=== PATIENT | male | born 1985 | race Caucasian/White ===

== ENCOUNTER 2023-07-26 00:53 | Inpatient (IN) | payer OTHER ==
[2023-07-26] MEDS ORDERED: ONDANSETRON 4 MG/2 ML VIAL IVP STA (01:14)
[2023-07-26] MEDS ORDERED: SODIUM CHLORIDE 0.9% 1,000 ML IV ONE ×2 (01:14→03:04)
[2023-07-26] MEDS ORDERED: THIAMINE 100 MG/ML 2 ML VIAL IM STA (01:14)
[2023-07-26] MEDS ORDERED: LORazepam 2 MG/ML INJ IV PRN ×5 (01:14→03:07)
--- NOTE | 2023-07-26 01:22 | ED ---
Alcohol HPI - General Source: EMS Mode of arrival: EMS Limitations: altered mental status <Domingo Hill - Last Filed: 07/26/23 03:58> <Rose Hardin - Last Filed: 07/26/23 16:27> - General Chief Complaint: Alcohol Stated Complaint: etoh Time Seen by Provider: 07/26/23 01:04 - History of Present Illness Initial Comments: 38-year-old male with history of alcohol dependence presenting with chief complaint of alcohol withdrawal. Patient last drank of complaint of vodka on Friday. Patient was checked into [facility] on Friday, states that he continuously had worsening symptoms of feeling shaky and visual and auditory hallucinations. States that he does have a history of delirium tremens. No chest pain or difficulty breathing. Admits to nausea with no vomiting. (Domingo Hill) - Related Data Allergies Allergy/AdvReac Type Severity Reaction Status Date / Time bee pollen Allergy Swelling Verified 07/26/23 11:54 Penicillins Allergy Rash/Hives Verified 07/26/23 11:54 Review of Systems ROS Other: All systems not noted in ROS Statement are negative. <Domingo Hill - Last Filed: 07/26/23 03:58> ROS Other: All systems not noted in ROS Statement are negative. <Rose Hardin - Last Filed: 07/26/23 16:27> ROS Statement: Those systems with pertinent positive or pertinent negative responses have been documented in the HPI. General Exam Limitations: altered mental status General appearance: alert, in no apparent distress Head exam: Present: atraumatic, normocephalic, normal inspection Eye exam: Present: normal appearance, EOMI Neck exam: Present: normal inspection, full ROM Respiratory exam: Present: normal lung sounds bilaterally. Absent: respiratory distress, wheezes, rales, rhonchi, stridor Cardiovascular Exam: Present: regular rate, normal rhythm, normal heart sounds. Absent: systolic murmur, diastolic murmur, rubs, gallop, clicks Neurological exam: Present: alert, altered Psychiatric exam: Present: normal affect, normal mood Skin exam: Present: warm, dry, intact, normal color. Absent: rash <Domingo Hill - Last Filed: 07/26/23 03:58> Course Vital Signs 07/26/23 07/26/2307/26/23 00:56 07:25 07:28 Temperature 99.0 F Pulse Rate 83 101 H 122 H Respiratory 18 24 28 H Rate Blood Pressure 133/88 117/70 110/59 O2 Sat by Pulse 95 88 L 94 L Oximetry 07/26/23 07/26/23 07/26/23 08:04 08:37 08:40 Temperature Pulse Rate 89 94 94 Respiratory 18 18 22 Rate Blood Pressure 121/81 121/83 139/92 O2 Sat by Pulse 96 98 97 Oximetry 07/26/23 07/26/23 07/26/23 09:15 09:30 09:45 Temperature Pulse Rate 77 80 86 Respiratory 18 18 18 Rate Blood Pressure 116/73 142/54 111/78 O2 Sat by Pulse 97 98 Oximetry 07/26/23 07/26/23 10:15 10:45 Temperature Pulse Rate 64 68 Respiratory 18 18 Rate Blood Pressure 144/54 135/66 O2 Sat by Pulse 97 97 Oximetry Procedures - Restraint - Face to Face Restraint Occurrence 1 Patient's Immediate Situation: Endangers self safety, Endangers others' safety Patient's Reaction to the Intervention: Angry, Hostile, Aggressive, Combative, Resistive to care Patient's Medical & Behavioral Condition: Anxious, Agitated Need to Continue or Terminate Restraint or Seclusion: Continue Face to Face Eval of Restraint Date: 07/26/23 Face to Face Eval of Restraint Time: 08:45 <Rose Hardin - Last Filed: 07/26/23 16:27> Medical Decision Making - Lab Data Result diagrams: 07/26/23 01:36 07/26/23 03:20 <Domingo Hill - Last Filed: 07/26/23 03:58> - Lab Data Result diagrams: 07/26/23 15:47 07/26/23 03:20 <Rose Hardin - Last Filed: 07/26/23 16:27> - Medical Decision Making Was pt. sent in by a medical professional or institution (, PA, EMERGENCY ROOM DOCTOR, urgent care, hospital, or fpc...) When possible be specific @ -No Did you speak to anyone other than the patient for history (EMS, parent, family, police, friend...)? What history was obtained from this source @ -No Did you review nursing and triage notes (agree or disagree)? Why? @ -I reviewed and agree with nursing and triage notes Were old charts reviewed (outside hosp., previous admission, EMS record, old EKG, old radiological studies, urgent care reports/EKG's, fpc records)? Report findings @ -No old charts were reviewed Differential Diagnosis (chest pain, altered mental status, abdominal pain women, abdominal pain men, vaginal bleeding, weakness, fever, dyspnea, syncope, headache, dizziness, GI bleed, back pain, seizure, CVA, palpatations, mental health, musculoskeletal)? @ -not applicable EKG interpreted by me (3pts min.). @ -Sinus rhythm with short [place] interval. Prolonged QT interval. Ventricular rate 80. [place] interval 107. QRS 100. QT 443. QTc 479. X-rays interpreted by me (1pt min.). @ -None done CT interpreted by me (1pt min.). @ -None done U/S interpreted by me (1pt. min.). @ -None done What testing was considered but not performed or refused? (CT, X-rays, U/S, labs)? Why? @ -None What meds were considered but not given or refused? Why? @ -None Did you discuss the management of the patient with other professionals (professionals i.e. , PA, EMERGENCY ROOM DOCTOR, lab, RT, psych nurse, social sciences lecturer, ore miner, teacher, environmental compliance officer, window caser)? Give summary @ -My attending spoke with [facility] group provider on-call who accepted admission Was smoking cessation discussed for >3mins.? @ -No Was critical care preformed (if so, how long)? @ -No Were there social determinants of health that impacted care today? How? (Homelessness, low income, unemployed, alcoholism, drug addiction, transportation, low edu. Level, literacy, decrease access to med. care, alf, rehab)? @ -No Was there de-escalation of care discussed even if they declined (Discuss DNR or withdrawal of care, Hospice)? DNR status @ -No What co-morbidities impacted this encounter? (DM, HTN, Smoking, COPD, CAD, Cancer, CVA, ARF, Chemo, Hep., AIDS, mental health diagnosis, sleep apnea, mor bid obesity)? @ -None Was patient admitted / discharged? Hospital course, mention meds given and route, prescriptions, significant lab abnormalities, going to OR and other pertinent info. @ -38-year-old male presenting with chief complaint of alcohol withdrawal from [facility]. Last drink was on Friday. Physical examination is conducted. Lab work shows hypokalemia with potassium 2.6. Sodium 124. Chloride 70. CO2 38. Magnesium 2.4. Transaminitis and hyperbilirubinemia secondary to alcoholism. Patient will be admitted for alcohol withdrawal and placed on CIWA protocol. He is receiving oral and IV potassium replacement and IV fluids. I discussed this case with my attending Dr. Pham. Undiagnosed new problem with uncertain prognosis? @ -No Drug Therapy requiring intensive monitoring for toxicity (Heparin, Nitro, Insulin, Cardizem)? @ -No Were any procedures done? @ -No Diagnosis/symptom? @ -Alcohol withdrawal, hypokalemia, hyponatremia Acute, or Chronic, or Acute on Chronic? @ -Acute Uncomplicated (without systemic symptoms) or Complicated (systemic symptoms)? @ -Complicated Side effects of treatment? @ -No Exacerbation, Progression, or Severe Exacerbation? @ -No Poses a threat to life or bodily function? How? (Chest pain, USA, MA, pneumonia, PE, COPD, DKA, ARF, appy, cholecystitis, CVA, Diverticulitis, Homicidal, Suicidal, threat to staff... and all critical care pts) @ -Yes (Domingo Hill) - Lab Data Lab Results 07/26/23 07/26/23 07/26/23 Range/Units 01:36 01:36 01:36 WBC 8.5 (3.8-10.6) k/uL RBC 4.77 (4.30-5.90) m/uL Hgb 15.6 (13.0-17.5) gm/dL Hct 44.3 (39.0-53.0) % MCV 92.9 (80.0-100.0) fL MCH 32.7 (25.0-35.0) pg MCHC 35.2 (31.0-37.0) g/dL RDW 12.9 (11.5-15.5) % Plt Count 180 (150-450) k/uL MPV 8.3 Neutrophils % 71 % Lymphocytes % 10 % Monocytes % 15 % Eosinophils % 1 % Basophils % 0 % Neutrophils # 6.1 (1.3-7.7) k/uL Lymphocytes # 0.9 L (1.0-4.8) k/uL Monocytes # 1.3 H (0-1.0) k/uL Eosinophils # 0.1 (0-0.7) k/uL Basophils # 0.0 (0-0.2) k/uL Sodium 124 L (137-145) mmol/L Potassium 2.6 L* (3.5-5.1) mmol/L Chloride 70 L* (98-107) mmol/L Carbon Dioxide 38 H (22-30) mmol/L Anion Gap 16 mmol/L BUN 32 H (9-20) mg/dL Creatinine 0.97 (0.66-1.25) mg/dL Est GFR (CKD-EPI)AfAm >90 (>60 ml/min/1.73 sqM) Est GFR (CKD-EPI)NonAf >90 (>60 ml/min/1.73 sqM) Glucose 127 H (74-99) mg/dL Calcium 9.8 (8.4-10.2) mg/dL Phosphorus 3.3 (2.5-4.5) mg/dL Magnesium 2.4 H (1.6-2.3) mg/dL Total Bilirubin 1.7 H (0.2-1.3) mg/dL AST 997 H (17-59) U/L ALT 276 H (4-49) U/L Alkaline Phosphatase 99 (38-126) U/L Total Protein 8.4 H (6.3-8.2) g/dL Albumin 4.6 (3.5-5.0) g/dL Urine Color Light Yellow Urine Appearance Clear (Clear) Urine pH 6.5 (5.0-8.0) Ur Specific [employer] 1.008 (1.001-1.035) Urine Protein 1+ H (Negative) Urine Glucose (UA) Negative (Negative) Urine Ketones Trace H (Negative) Urine Blood Large H (Negative) Urine Nitrite Negative (Negative) Urine Bilirubin Negative (Negative) Urine Urobilinogen 2.0 (<2.0) mg/dL Ur Leukocyte Esterase Negative (Negative) Urine RBC 3 (0-5) /hpf Urine WBC 2 (0-5) /hpf Urine Bacteria Rare H (None) /hpf Serum Alcohol <10 mg/dL Disposition <Domingo Hill - Last Filed: 07/26/23 03:58> <Rose Hardin - Last Filed: 07/26/23 16:27> Clinical Impression: Alcohol withdrawal delirium, Alcohol withdrawal syndrome Disposition: ADMITTED IP TO THIS HOSP Condition: Stable
[2023-07-26 01:57] LABS: Basophils % (A) 0 %; Eosinophils # (A) 0.1 k/uL (0-0.7); Eosinophils % (A) 1 %; HCT 44.3 % (39.0-53.0); HGB 15.6 gm/dL (13.0-17.5); Lymphocytes # (A) 0.9 k/uL (1.0-4.8); Lymphocytes % (A) 10 %; MCH 32.7 pg (25.0-35.0); MCHC 35.2 g/dL (31.0-37.0); MCV 92.9 fL (80.0-100.0); Mean Platelet Volume 8.3; Monocytes # (A) 1.3 k/uL (0-1.0); Monocytes % (A) 15 %; Neutrophils # (A) 6.1 k/uL (1.3-7.7); Neutrophils % (A) 71 %; Platelet Count 180 k/uL (150-450); RBC 4.77 m/uL (4.30-5.90); RDW 12.9 % (11.5-15.5); WBC 8.5 k/uL (3.8-10.6)
[2023-07-26 02:04] LABS: Appearance,Urine Clear (Clear); Bacteria,Urine Rare /hpf; Bilirubin,Urine Negative (Negative); Blood,Urine Large (Negative); Color,Urine Light Yellow; Glucose,Urine (UA) Negative (Negative); Ketones,Urine Trace (Negative); Leukocyte Esterase,Urine Negative (Negative); Nitrite,Urine Negative (Negative); PH, Urine 6.5 (5.0-8.0); Protein,Urine 1+ (Negative); RBC,Urine 3 /hpf (0-5); Specific Gravity,Urine 1.008 (1.001-1.035); WBC,Urine 2 /hpf (0-5)
[2023-07-26 02:46] LABS: ALT 276 U/L (4-49); African American GFR (CKD) >90 (>60 ml/min/1.73 sqM); Albumin 4.6 g/dL (3.5-5.0); Alcohol <10 mg/dL; Alkaline Phosphatase 99 U/L (38-126); Blood Urea Nitrogen 32 mg/dL (9-20); Calcium 9.8 mg/dL (8.4-10.2); Glucose 127 mg/dL (74-99); Magnesium 2.4 mg/dL (1.6-2.3); Non-African American GFR(CKD) >90 (>60 ml/min/1.73 sqM); Phosphorus 3.3 mg/dL (2.5-4.5); Sodium 124 mmol/L (137-145); Total Bilirubin 1.7 mg/dL (0.2-1.3); Total Protein 8.4 g/dL (6.3-8.2)
[2023-07-26] MEDS ORDERED: LORazepam 2 MG/ML INJ IM STA ×3 (02:48→04:40)
[2023-07-26] MEDS ORDERED: LORazepam 2 MG/ML INJ IM PRN ×3 (02:50)
[2023-07-26 02:51] LABS: Anion Gap 16 mmol/L
[2023-07-26 02:54] LABS: AST 997 U/L (17-59); Carbon Dioxide 38 mmol/L (22-30); Chloride 70 mmol/L (98-107); Potassium 2.6 mmol/L (3.5-5.1)
[2023-07-26] MEDS ORDERED: Potassium Replacement Protocol 1 EACH MISC MISCELLANE PRN (03:03)
[2023-07-26] MEDS ORDERED: NALOXONE 0.4 MG/ML 1 ML VIAL IV PRN (03:05)
[2023-07-26] MEDS ORDERED: ONDANSETRON 4 MG/2 ML VIAL IVP PRN (03:08)
[2023-07-26] MEDS: SODIUM CHLORIDE 0.9% 1,000 ML IV SCH ×2 (03:36→11:58)
[2023-07-26] MEDS: POTASSIUM CHLORIDE 10 MEQ in WATER FOR INJECTION 1 100ML.BAG IVPB SCH ×12 (03:37→22:48)
[2023-07-26 03:42] LABS: African American GFR (CKD) >90 (>60 ml/min/1.73 sqM); Anion Gap 13 mmol/L; Blood Urea Nitrogen 32 mg/dL (9-20); Calcium 9.5 mg/dL (8.4-10.2); Glucose 154 mg/dL (74-99); Non-African American GFR(CKD) >90 (>60 ml/min/1.73 sqM); Sodium 122 mmol/L (137-145)
[2023-07-26 03:48] LABS: Carbon Dioxide 40 mmol/L (22-30)
[2023-07-26 03:55] LABS: Chloride 69 mmol/L (98-107)
[2023-07-26] MEDS ORDERED: HALOPERIDOL LACTATE 5 MG/ML 1 ML VIAL IM STA (03:55)
[2023-07-26] MEDS ORDERED: diphenhydrAMINE 50 MG/ML 1 ML VIAL IM STA (03:55)
[2023-07-26] MEDS: POTASSIUM CHLORIDE ER 20 MEQ TAB.ER PO SCH ×3 (04:17→07:32)
[2023-07-26] MEDS ORDERED: ZIPRASIDONE 20 MG VIAL IM STA (04:38)
--- NOTE | 2023-07-26 05:13 | ED ---
Medical Decision Making - Lab Data Result diagrams: 07/26/23 01:36 07/26/23 03:20 Lab Results 07/26/23 07/26/23 07/26/23 Range/Units 01:36 01:36 01:36 WBC 8.5 (3.8-10.6) k/uL RBC 4.77 (4.30-5.90) m/uL Hgb 15.6 (13.0-17.5) gm/dL Hct 44.3 (39.0-53.0) % MCV 92.9 (80.0-100.0) fL MCH 32.7 (25.0-35.0) pg MCHC 35.2 (31.0-37.0) g/dL RDW 12.9 (11.5-15.5) % Plt Count 180 (150-450) k/uL MPV 8.3 Neutrophils % 71 % Lymphocytes % 10 % Monocytes % 15 % Eosinophils % 1 % Basophils % 0 % Neutrophils # 6.1 (1.3-7.7) k/uL Lymphocytes # 0.9 L (1.0-4.8) k/uL Monocytes # 1.3 H (0-1.0) k/uL Eosinophils # 0.1 (0-0.7) k/uL Basophils # 0.0 (0-0.2) k/uL Sodium 124 L (137-145) mmol/L Potassium 2.6 L* (3.5-5.1) mmol/L Chloride 70 L* (98-107) mmol/L Carbon Dioxide 38 H (22-30) mmol/L Anion Gap 16 mmol/L BUN 32 H (9-20) mg/dL Creatinine 0.97 (0.66-1.25) mg/dL Est GFR (CKD-EPI)AfAm >90 (>60 ml/min/1.73 sqM) Est GFR (CKD-EPI)NonAf >90 (>60 ml/min/1.73 sqM) Glucose 127 H (74-99) mg/dL Calcium 9.8 (8.4-10.2) mg/dL Phosphorus 3.3 (2.5-4.5) mg/dL Magnesium 2.4 H (1.6-2.3) mg/dL Total Bilirubin 1.7 H (0.2-1.3) mg/dL AST 997 H (17-59) U/L ALT 276 H (4-49) U/L Alkaline Phosphatase 99 (38-126) U/L Total Protein 8.4 H (6.3-8.2) g/dL Albumin 4.6 (3.5-5.0) g/dL Urine Color Light Yellow Urine Appearance Clear (Clear) Urine pH 6.5 (5.0-8.0) Ur Specific [place] 1.008 (1.001-1.035) Urine Protein 1+ H (Negative) Urine Glucose (UA) Negative (Negative) Urine Ketones Trace H (Negative) Urine Blood Large H (Negative) Urine Nitrite Negative (Negative) Urine Bilirubin Negative (Negative) Urine Urobilinogen 2.0 (<2.0) mg/dL Ur Leukocyte Esterase Negative (Negative) Urine RBC 3 (0-5) /hpf Urine WBC 2 (0-5) /hpf Urine Bacteria Rare H (None) /hpf Serum Alcohol <10 mg/dL 07/26/23 Range/Units 03:20 WBC (3.8-10.6) k/uL RBC (4.30-5.90) m/uL Hgb (13.0-17.5) gm/dL Hct (39.0-53.0) % MCV (80.0-100.0) fL MCH (25.0-35.0) pg MCHC (31.0-37.0) g/dL RDW (11.5-15.5) % Plt Count (150-450) k/uL MPV Neutrophils % % Lymphocytes % % Monocytes % % Eosinophils % % Basophils % % Neutrophils # (1.3-7.7) k/uL Lymphocytes # (1.0-4.8) k/uL Monocytes # (0-1.0) k/uL Eosinophils # (0-0.7) k/uL Basophils # (0-0.2) k/uL Sodium 122 L (137-145) mmol/L Potassium 3.0 L (3.5-5.1) mmol/L Chloride 69 L* (98-107) mmol/L Carbon Dioxide 40 H (22-30) mmol/L Anion Gap 13 mmol/L BUN 32 H (9-20) mg/dL Creatinine 0.94 (0.66-1.25) mg/dL Est GFR (CKD-EPI)AfAm >90 (>60 ml/min/1.73 sqM) Est GFR (CKD-EPI)NonAf >90 (>60 ml/min/1.73 sqM) Glucose 154 H (74-99) mg/dL Calcium 9.5 (8.4-10.2) mg/dL Phosphorus (2.5-4.5) mg/dL Magnesium (1.6-2.3) mg/dL Total Bilirubin (0.2-1.3) mg/dL AST (17-59) U/L ALT (4-49) U/L Alkaline Phosphatase (38-126) U/L Total Protein (6.3-8.2) g/dL Albumin (3.5-5.0) g/dL Urine Color Urine Appearance (Clear) Urine pH (5.0-8.0) Ur Specific [place] (1.001-1.035) Urine Protein (Negative) Urine Glucose (UA) (Negative) Urine Ketones (Negative) Urine Blood (Negative) Urine Nitrite (Negative) Urine Bilirubin (Negative) Urine Urobilinogen (<2.0) mg/dL Ur Leukocyte Esterase (Negative) Urine RBC (0-5) /hpf Urine WBC (0-5) /hpf Urine Bacteria (None) /hpf Serum Alcohol mg/dL Disposition Clinical Impression: Alcohol withdrawal delirium, Alcohol withdrawal syndrome Disposition: ADMITTED IP TO THIS [facility] Condition: Stable Referrals: None,Stated [Primary Care Provider] - 1-2 days Procedures - Restraint - Face to Face Restraint Occurrence 1 Patient's Immediate Situation: Endangers self safety, Endangers others' safety Patient's Reaction to the Intervention: Aggressive, Combative Patient's Medical & Behavioral Condition: Awake, Agitated Need to Continue or Terminate Restraint or Seclusion: Continue Face to Face Eval of Restraint Date: 07/26/23 Face to Face Eval of Restraint Time: 04:48
[2023-07-26] MEDS: DEXMEDETOMIDINE/0.9% NACL(PMX) 400 MCG in EMPTY BAG 1 BAG IV SCH ×2 (06:40→12:05)
[2023-07-26] MEDS: LORazepam 2 MG/ML INJ IV PRN ×2 (06:47→06:58)
[2023-07-26 11:42] LABS: Glucose,Whole Blood 116 mg/dL (70-110)
--- NOTE | 2023-07-26 13:07 | P.CNPUL ---
History of Present Illness Consult date: 07/26/23 Chief complaint: Altered mentation, delirium tremens History of present illness: 38-year-old male with history of alcohol dependence presenting with chief complaint of alcohol withdrawal. Patient last drank of complaint of vodka on Friday. Patient was checked into [facility] on Friday, states that he continuously had worsening symptoms of feeling shaky and visual and auditory hallucinations. States that he does have a history of delirium tremens. No chest pain or difficulty breathing. Admits to nausea with no vomiting. The patient came into the emergency department and the electrolytes were significan tly abnormal. The patient had a sodium level of 122 with a potassium level of 3, chloride this 69, bicarb is at 40, BUN 32 with a creatinine of 0.9. LFTs were abnormal consistent with alcoholic hepatitis with an AST of 99 7, LDL cholesterol 76, bilirubin of 1.7, alcohol level is less than 10, glucose was 116, hemoglobin is at 15.6 with a white cell count of 8.5. Currently is on room air oxygen. Hemodynamically stable. No reported aspiration. No shortness of breath or chest pain. No focal neurological deficits. He is currently on Precedex at 0.2 mcg/kg/h Review of Systems ROS unobtainable: due to mental status Past Medical History Additional Past Medical History / Comment(s): Alcoholism History of Any Multi-Drug Resistant Organisms: None Reported Past Surgical History: No Surgical Hx Reported Past Anesthesia/Blood Transfusion Reactions: No Reported Reaction Past Psychological History: Anxiety, Depression Smoking Status: Current every day smoker Medications and Allergies Home Medications Medication Instructions Recorded Confirmed Type Acetaminophen Tab [Tylenol] 650 mg PO Q4H PRN 07/26/23 07/26/23 History Calcium, Magnesium, Zinc, With 1 tab PO TID PRN 07/26/23 07/26/23 History Vitamin D3 Chlorpheniramine Maleate 4 mg PO Q4H PRN 07/26/23 07/26/23 History [Chlor-Trimeton] Hyoscyamine Sulfate [Levsin] 0.125 mg PO QID PRN 07/26/23 07/26/23 History Ibuprofen [Motrin Ib] 600 mg PO Q6H PRN 07/26/23 07/26/23 History Loperamide HCl [Imodium A-D] 4 mg PO QID PRN MDD 16 MG 07/26/23 07/26/23 History Multivitamins, Thera [Multivitamin 1 tab PO DAILY 07/26/23 07/26/23 History (formulary)] Thiamine [Vitamin B-1] 100 mg PO DAILY 07/26/23 07/26/23 History ondansetron HCL [Zofran] 8 mg PO Q6H PRN 07/26/23 07/26/23 History Allergies Allergy/AdvReac Type Severity Reaction Status Date / Time bee pollen Allergy Swelling Verified 07/26/23 11:54 Penicillins Allergy Rash/Hives Verified 07/26/23 11:54 Physical Exam Vitals: Vital Signs Temp Pulse Resp BP Pulse Ox 07/26/23 12:20 64 18 93/72 99 07/26/23 12:00 98.2 F 62 18 93/63 98 07/26/23 11:40 63 18 128/68 98 07/26/23 10:45 68 18 135/66 97 07/26/23 10:15 64 18 144/54 97 07/26/23 09:45 86 18 111/78 07/26/23 09:30 80 18 142/54 98 07/26/23 09:15 77 18 116/73 97 07/26/23 08:40 94 22 139/92 97 07/26/23 08:37 94 18 121/83 98 07/26/23 08:04 89 18 121/81 96 07/26/23 07:28 122 H 28 H 110/59 94 L 07/26/23 07:25 101 H 24 117/70 88 L 07/26/23 00:56 99.0 F 83 18 133/88 95 Intake and Output 07/25/23 07/26/23 07/26/23 22:59 06:59 14:59 Intake Total 1.248 298.752 Output Total 1600 Balance 1.248 -1301.248 Intake: Intake, IV Titration 1.248 298.752 Amount Dexmedetomidine/0.9% NaCl 1.248 98.752 (Pmx) 400 mcg In Empty Bag 1 bag @ 0.2 MCG/KG/HR 4.99 mls/hr IV .Q20H3M [facility] Rx#:[id number] Potassium Chloride 10 meq 100 In Water For Injection 1 100ml.bag @ 100 mls/hr IVPB Q1HR [facility] Rx#: [id number] Sodium Chloride 0.9% 1, 100 000 ml @ 100 mls/hr IV . Q10H [facility] Rx#:[id number] Output: Urine 1600 Other: Voiding Method Indwelling Catheter Weight 99.79 kg The patient is lethargic, sleepy, currently sedated on Precedex. No active agitation. He is on 2 L O2 nasal cannula with a pulse ox of 98% The patient appeared well nourished and normally developed. Vital signs as documented. Head exam is unremarkable. No scleral icterus or corneal arcus note d. Neck is without jugular venous distension, thyromegaly, or carotid bruits. Carotid upstrokes are brisk bilaterally. Lungs are clear to auscultation and percussion. Cardiac exam reveals the PMI to be normally sized and situated. Rhythm is regular. First and second heart sounds normal. No murmurs, rubs or gallops. Abdominal exam reveals normal bowel sounds, no masses, no organomegaly and no aortic enlargement. Extremities are nonedematous and both femoral and pedal pulses are normal.Examination of the skin revealed no evidence of significant rashes, suspicious appearing nevi or other concerning lesions. Results - Laboratory Findings CBC and BMP: 07/26/23 01:36 07/26/23 03:20 Abnormal lab findings: Abnormal Labs 07/26/23 07/26/23 07/26/23 01:36 01:36 01:36 Lymphocytes # 0.9 L Monocytes # 1.3 H Sodium 124 L Potassium 2.6 L* Chloride 70 L* Carbon Dioxide 38 H BUN 32 H Glucose 127 H POC Glucose (mg/dL) Magnesium 2.4 H Total Bilirubin 1.7 H AST 997 H ALT 276 H Total Protein 8.4 H Urine Protein 1+ H Urine Ketones Trace H Urine Blood Large H Urine Bacteria Rare H 07/26/23 07/26/23 03:20 11:41 Lymphocytes # Monocytes # Sodium 122 L Potassium 3.0 L Chloride 69 L* Carbon Dioxide 40 H BUN 32 H Glucose 154 H POC Glucose (mg/dL) 116 H Magnesium Total Bilirubin AST ALT Total Protein Urine Protein Urine Ketones Urine Blood Urine Bacteria Assessment and Plan Plan: Delirium tremens secondary to alcohol withdrawal Chronic alcoholism Hypovolemic hyponatremia with intravascular volume depletion/dehydration Hypokalemia Metabolic alkalosis Alcoholic hepatitis Plan Continue Precedex and gradually weaned off as tolerated Ativan per ciwa protocol Thiamine Normal saline at the rate of 100 mL an hour. The patient has already been given 2 L Replace potassium Monitor sodium level Monitor LFTs Heparin subcu portably prophylaxis IV Protonix Keep nothing by mouth Aspiration precautions We'll continue to follow
[2023-07-26 16:10] LABS: Basophils % (A) 0 %; Eosinophils # (A) 0.1 k/uL (0-0.7); Eosinophils % (A) 1 %; HCT 38.6 % (39.0-53.0); HGB 13.6 gm/dL (13.0-17.5); Lymphocytes # (A) 0.8 k/uL (1.0-4.8); Lymphocytes % (A) 13 %; MCH 33.4 pg (25.0-35.0); MCHC 35.2 g/dL (31.0-37.0); MCV 94.9 fL (80.0-100.0); Mean Platelet Volume 9.1; Monocytes # (A) 0.9 k/uL (0-1.0); Monocytes % (A) 15 %; Neutrophils # (A) 4.2 k/uL (1.3-7.7); Neutrophils % (A) 69 %; Platelet Count 142 k/uL (150-450); RBC 4.07 m/uL (4.30-5.90)
[2023-07-26 16:17] LABS: ALT 239 U/L (4-49); African American GFR (CKD) >90 (>60 ml/min/1.73 sqM); Albumin 3.6 g/dL (3.5-5.0); Alkaline Phosphatase 74 U/L (38-126); Blood Urea Nitrogen 25 mg/dL (9-20); Calcium 8.8 mg/dL (8.4-10.2); Chloride 84 mmol/L (98-107); Glucose 105 mg/dL (74-99); Magnesium 2.4 mg/dL (1.6-2.3); Non-African American GFR(CKD) >90 (>60 ml/min/1.73 sqM); Phosphorus 3.8 mg/dL (2.5-4.5); Potassium 2.8 mmol/L (3.5-5.1); Sodium 129 mmol/L (137-145); Total Bilirubin 1.5 mg/dL (0.2-1.3); Total Protein 6.5 g/dL (6.3-8.2)
[2023-07-26 16:24] LABS: Anion Gap 8 mmol/L
[2023-07-26 16:58] LABS: AST 839 U/L (17-59); Carbon Dioxide 37 mmol/L (22-30)
[2023-07-26] MEDS: HEPARIN SODIUM,PORCINE 5,000 UNIT/ML 1 ML VIAL SQ SCH (17:02)
[2023-07-26] MEDS ORDERED: HEPARIN SODIUM,PORCINE 5,000 UNIT/ML 1 ML VIAL SQ SCH (21:00)
--- NOTE | 2023-07-26 22:08 | P.HPIM ---
History of Present Illness H&P Date: 07/26/23 Chief Complaint: Alcohol withdrawal symptoms Patient is a 38-year-old male presents to ER due to alcohol withdrawal symptoms. According to the ER note patient had last drank of vodka on Friday and she agreed to [place] on Friday. Patient has been having shaking and worsening symptoms and also visual and auditory hallucinations. Patient did have a history of DTs. Came to ER for further evaluation. Did have nausea andvomiting. No complaints of chest pain or shortness of breath no fever no chills. No recent illnesses. Patient was agitated in the ER and was aggressive and combative. Patient was transferred to MICU for further management. Currently on Precedex drip. Laboratory test showed sodium 124 potassium 2.6 chloride 70 bicarb is 38 anion gap 16 BUN 32 and creatinine 0.97 blood sugar 127, magnesium 2.4 total bilirubin level 1.7 AST 997 ALT 276 and alk phos 77. Urinalysis showed trace ketones and large blood and RBCs 3. Serum alcohol level is less than 10. WBC 8.4 hemoglobin 15.6 and platelets 180. Review of Systems ROS unobtainable: due to mental status Medications and Allergies Home Medications Medication Instructions Recorded Confirmed Type Acetaminophen Tab [Tylenol] 650 mg PO Q4H PRN 07/26/23 07/26/23 History Calcium, Magnesium, Zinc, With 1 tab PO TID PRN 07/26/23 07/26/23 History Vitamin D3 Chlorpheniramine Maleate 4 mg PO Q4H PRN 07/26/23 07/26/23 History [Chlor-Trimeton] Hyoscyamine Sulfate [Levsin] 0.125 mg PO QID PRN 07/26/23 07/26/23 History Ibuprofen [Motrin Ib] 600 mg PO Q6H PRN 07/26/23 07/26/23 History Loperamide HCl [Imodium A-D] 4 mg PO QID PRN MDD 16 MG 07/26/23 07/26/23 History Multivitamins, Thera [Multivitamin 1 tab PO DAILY 07/26/23 07/26/23 History (formulary)] Thiamine [Vitamin B-1] 100 mg PO DAILY 07/26/23 07/26/23 History ondansetron HCL [Zofran] 8 mg PO Q6H PRN 07/26/23 07/26/23 History Allergies Allergy/AdvReac Type Severity Reaction Status Date / Time bee pollen Allergy Swelling Verified 07/26/23 11:54 Penicillins Allergy Rash/Hives Verified 07/26/23 11:54 Physical Exam Vitals: Vital Signs Temp Pulse Resp BP Pulse Ox 07/26/23 10:15 64 18 144/54 97 07/26/23 09:45 86 18 111/78 07/26/23 09:30 80 18 142/54 98 07/26/23 09:15 77 18 116/73 97 07/26/23 08:40 94 22 139/92 97 07/26/23 08:37 94 18 121/83 98 07/26/23 08:04 89 18 121/81 96 07/26/23 07:28 122 H 28 H 110/59 94 L 07/26/23 07:25 101 H 24 117/70 88 L 07/26/23 00:56 99.0 F 83 18 133/88 95 Intake and Output 07/25/23 07/26/23 07/26/23 22:59 06:59 14:59 Intake Total 1.248 47.527 Balance 1.248 47.527 Intake: Intake, IV Titration 1.248 47.527 Amount Dexmedetomidine/0.9% NaCl 1.248 47.527 (Pmx) 400 mcg In Empty Bag 1 bag @ 0.2 MCG/KG/HR 4.99 mls/hr IV .Q20H3M [facility] Rx#:[id number] Other: Weight 99.79 kg PHYSICAL EXAMINATION: Patient is lying in the bed. Sedated HEENT: Normocephalic. Neck is supple. Pupils reactive. Nostrils clear. Oral cavity is moist. Neck reveals no JVD, carotid bruits, or thyromegaly. CHEST EXAMINATION: Trachea is central. Symmetrical expansion. Lung conway clear to auscultation and percussion. CARDIAC: Normal S1, S2 with no gallops. No murmurs ABDOMEN: Soft. Bowel sounds present. No organomegaly. No abdominal bruits. Extremities: reveal no edema. No clubbing or cyanosis Neurologically. Patient is sedated. No gross focal deficits noted Skin: No rash or skin lesions. Psychiatric: Could not be assessed completely., Musculoskeletal: No joint swelling or deformity. Results CBC & Chem 7: 07/26/23 15:47 07/26/23 15:47 Labs: Abnormal Lab Results - Last 24 Hours (Table) 07/26/23 07/26/23 07/26/23 Range/Units 01:36 01:36 01:36 Lymphocytes # 0.9 L (1.0-4.8) k/uL Monocytes # 1.3 H (0-1.0) k/uL Sodium 124 L (137-145) mmol/L Potassium 2.6 L* (3.5-5.1) mmol/L Chloride 70 L* (98-107) mmol/L Carbon Dioxide 38 H (22-30) mmol/L BUN 32 H (9-20) mg/dL Glucose 127 H (74-99) mg/dL Magnesium 2.4 H (1.6-2.3) mg/dL Total Bilirubin 1.7 H (0.2-1.3) mg/dL AST 997 H (17-59) U/L ALT 276 H (4-49) U/L Total Protein 8.4 H (6.3-8.2) g/dL Urine Protein 1+ H (Negative) Urine Ketones Trace H (Negative) Urine Blood Large H (Negative) Urine Bacteria Rare H (None) /hpf 07/26/23 Range/Units 03:20 Lymphocytes # (1.0-4.8) k/uL Monocytes # (0-1.0) k/uL Sodium 122 L (137-145) mmol/L Potassium 3.0 L (3.5-5.1) mmol/L Chloride 69 L* (98-107) mmol/L Carbon Dioxide 40 H (22-30) mmol/L BUN 32 H (9-20) mg/dL Glucose 154 H (74-99) mg/dL Magnesium (1.6-2.3) mg/dL Total Bilirubin (0.2-1.3) mg/dL AST (17-59) U/L ALT (4-49) U/L Total Protein (6.3-8.2) g/dL Urine Protein (Negative) Urine Ketones (Negative) Urine Blood (Negative) Urine Bacteria (None) /hpf Thrombosis Risk Factor Assmnt - DVT/VTE Prophylaxis DVT/VTE Prophylaxis: Pharmacologic Prophylaxis ordered Assessment and Plan Assessment: Acute alcohol withdrawal symptoms with DTs Severe hypokalemia potassium 2.6 on admission Hypovolemic hyponatremia Alcoholic hepatitis Mild hyperbilirubinemia Dehydration volume depletion Severe alcohol abuse DVT prophylaxis and GI prophylaxis. Plan: Patient will be continued on IV hydration with normal saline. Was given Ativan, Geodon and Haldol in the ER. Patient was still agitated and combative. Transferred to MICU. Replace potassium and repeat level. Patient patient is currently on Precedex drip. Continue with thiamine and multivitamins and GI and DVT prophylaxis. Monitor closely. Critical care team is on board. Follow-up CBC and CMP. Time with Patient: Greater than 30
[2023-07-27 00:41] LABS: African American GFR (CKD) >90 (>60 ml/min/1.73 sqM); Anion Gap 6 mmol/L; Blood Urea Nitrogen 19 mg/dL (9-20); Calcium 8.8 mg/dL (8.4-10.2); Carbon Dioxide 36 mmol/L (22-30); Chloride 88 mmol/L (98-107); Glucose 97 mg/dL (74-99); Non-African American GFR(CKD) >90 (>60 ml/min/1.73 sqM); Sodium 130 mmol/L (137-145)
[2023-07-27] MEDS: HEPARIN SODIUM,PORCINE 5,000 UNIT/ML 1 ML VIAL SQ SCH ×4 (00:44→23:16)
[2023-07-27] MEDS: SODIUM CHLORIDE 0.9% 1,000 ML IV SCH ×3 (00:46→19:04)
[2023-07-27] MEDS: POTASSIUM CHLORIDE 10 MEQ in WATER FOR INJECTION 1 100ML.BAG IVPB SCH ×6 (02:02→09:12)
[2023-07-27] MEDS: DEXMEDETOMIDINE/0.9% NACL(PMX) 400 MCG in EMPTY BAG 1 BAG IV SCH (03:34)
[2023-07-27 06:49] LABS: ALT 208 U/L (4-49); AST 603 U/L (17-59); African American GFR (CKD) >90 (>60 ml/min/1.73 sqM); Albumin 3.3 g/dL (3.5-5.0); Alkaline Phosphatase 72 U/L (38-126); Anion Gap 4 mmol/L; Blood Urea Nitrogen 18 mg/dL (9-20); Calcium 8.6 mg/dL (8.4-10.2); Carbon Dioxide 34 mmol/L (22-30); Chloride 92 mmol/L (98-107); Glucose 93 mg/dL (74-99); Magnesium 2.2 mg/dL (1.6-2.3); Non-African American GFR(CKD) >90 (>60 ml/min/1.73 sqM); Potassium 3.2 mmol/L (3.5-5.1); Sodium 130 mmol/L (137-145); Total Bilirubin 1.4 mg/dL (0.2-1.3)
[2023-07-27] MEDS ORDERED: THIAMINE 100 MG in SODIUM CHLORIDE 0.9% 50 ML IVPB SCH (09:00)
[2023-07-27] MEDS ORDERED: PANTOPRAZOLE 40 MG/10 ML VIAL IVP SCH (09:00)
[2023-07-27] MEDS ORDERED: THIAMINE 100 MG TAB PO SCH (09:00)
[2023-07-27] MEDS: POTASSIUM CHLORIDE ER 20 MEQ TAB.ER PO SCH ×3 (10:04→15:42)
--- NOTE | 2023-07-27 11:26 | P.PN ---
Subjective Progress Note Date: 07/27/23 38-year-old male with history of alcohol dependence presenting with chief compla int of alcohol withdrawal. Patient last drank of complaint of vodka on Friday. Patient was checked into [facility] on Friday, states that he continuously had worsening symptoms of feeling shaky and visual and auditory hallucinations. States that he does have a history of delirium tremens. No chest pain or difficulty breathing. Admits to nausea with no vomiting. The patient came into the emergency department and the electrolytes were significantly abnormal. The patient had a sodium level of 122 with a potassium level of 3, chloride this 69, bicarb is at 40, BUN 32 with a creatinine of 0.9. LFTs were abnormal consistent with alcoholic hepatitis with an AST of 99 7, LDL cholesterol 76, bilirubin of 1.7, alcohol level is less than 10, glucose was 116, hemoglobin is at 15.6 with a white cell count of 8.5. Currently is on room air oxygen. Hemodynamically stable. No reported aspiration. No shortness of breath or chest pain. No focal neurological deficits. He is currently on Precedex at 0.2 mcg/kg/h On today's evaluation of 07/27/2023 patient is on a low dose of Precedex at 0.4 mcg/kg/h. Doing extremely well. No specific complaints. No agitation. No tremors. No confusion. Hemodynamically, the patient is stable. Sodium is at 1:30 which is improved and the patient is receiving normal saline. Potassium levels at 3.2. BUN is at 80 with a creatinine of 0.8. Potassium level has been replaced aggressively overnight. The patient also has a component of alcoholic hepatitis and LFTs are also improving. Objective - Vital Signs Vital signs: Vital Signs Temp 99.6 F 07/27/23 04:00 Pulse 64 07/27/23 07:00 Resp 24 07/27/23 07:00 BP 115/76 07/27/23 07:00 Pulse Ox 95 07/27/23 07:00 FiO2 Intake & Output 07/26/23 07/27/23 07/27/23 18:59 06:59 18:59 Intake Total 1855.594 8287.189 109.98 Output Total 2285 1885 90 Balance -1031.155 184.189 19.98 Weight 95.5 kg Intake: Intake, IV Titration 4985.462 5274.189 109.98 Amount Dexmedetomidine/0.9% NaCl 153.845 69.189 9.98 (Pmx) 400 mcg In Empty Bag 1 bag @ 0.2 MCG/KG/HR 4.99 mls/hr IV .Q20H3M [facility] Rx#:[id number] Potassium Chloride 10 meq 300 In Water For Injection 1 100ml.bag @ 100 mls/hr IVPB Q1HR [facility] Rx#: [id number] Potassium Chloride 10 meq 100 900 In Water For Injection 1 100ml.bag @ 100 mls/hr IVPB Q1HR [facility] Rx#: [id number] Sodium Chloride 0.9% 1, 700 1100 100 000 ml @ 100 mls/hr IV . Q10H [facility] Rx#:[id number] Output: Urine 2285 1885 90 Other: Voiding Method Indwelling Catheter Indwelling Catheter - Exam The patient is lethargic, sleepy, currently awake and alert and communicating. No active agitation. He is on 2 L O2 nasal cannula with a pulse ox of 98% The patient appeared well nourished and normally developed. Vital signs as documented. Head exam is unremarkable. No scleral icterus or corneal arcus noted. Neck is without jugular venous distension, thyromegaly, or carotid bruits. Carotid upstrokes are brisk bilaterally. Lungs are clear to auscultation and percussion. Cardiac exam reveals the PMI to be normally sized and situated. Rhythm is regular. First and second heart sounds normal. No murmurs, rubs or gallops. Abdominal exam reveals normal bowel sounds, no masses, no organomegaly and no aortic enlargement. Extremities are nonedematous and both femoral and pedal pulses are normal.Examination of the skin revealed no evidence of significant rashes, suspicious appearing nevi or other concerning lesions. - Labs CBC & Chem 7: 07/26/23 15:47 07/27/23 06:14 Labs: Abnormal Lab Results - Last 24 Hours (Table) 07/26/23 07/26/23 07/26/23 Range/Units 11:41 15:47 15:47 RBC 4.07 L (4.30-5.90) m/uL Hct 38.6 L (39.0-53.0) % Plt Count 142 L (150-450) k/uL Lymphocytes # 0.8 L (1.0-4.8) k/uL Sodium 129 L (137-145) mmol/L Potassium 2.8 L (3.5-5.1) mmol/L Chloride 84 L (98-107) mmol/L Carbon Dioxide 37 H (22-30) mmol/L BUN 25 H (9-20) mg/dL Glucose 105 H (74-99) mg/dL POC Glucose (mg/dL) 116 H (70-110) mg/dL Magnesium 2.4 H (1.6-2.3) mg/dL Total Bilirubin 1.5 H (0.2-1.3) mg/dL AST 839 H (17-59) U/L ALT 239 H (4-49) U/L Total Protein (6.3-8.2) g/dL Albumin (3.5-5.0) g/dL 07/27/23 07/27/23 Range/Units 00:12 06:14 RBC (4.30-5.90) m/uL Hct (39.0-53.0) % Plt Count (150-450) k/uL Lymphocytes # (1.0-4.8) k/uL Sodium 130 L 130 L (137-145) mmol/L Potassium 3.0 L 3.2 L (3.5-5.1) mmol/L Chloride 88 L 92 L (98-107) mmol/L Carbon Dioxide 36 H 34 H (22-30) mmol/L BUN (9-20) mg/dL Glucose (74-99) mg/dL POC Glucose (mg/dL) (70-110) mg/dL Magnesium (1.6-2.3) mg/dL Total Bilirubin 1.4 H (0.2-1.3) mg/dL AST 603 H (17-59) U/L ALT 208 H (4-49) U/L Total Protein 6.0 L (6.3-8.2) g/dL Albumin 3.3 L (3.5-5.0) g/dL Assessment and Plan Plan: Delirium tremens secondary to alcohol withdrawal, recovered and the patient will be taken off the Precedex Chronic alcoholism Hypovolemic hyponatremia with intravascular volume depletion/dehydration, improved Hypokalemia, improved Metabolic alkalosis Alcoholic hepatitis, improving Plan Discontinue Precedex Ativan per [facility] protocol Thiamine Normal saline at the rate of 100 mL an hour. The patient has already been given 2 L Replace potassium, the potassium levels improved Monitor sodium level, improved Monitor LFTs Heparin subcu portably prophylaxis IV Protonix Offered diet Aspiration precautions We'll continue to follow, transfer the patient out of the intensive care unit
--- NOTE | 2023-07-27 11:28 | XR ---
EXAMINATION TYPE: XR chest 1V portable DATE OF EXAM: 07/27/2023 COMPARISON: NONE HISTORY: Hypoxia TECHNIQUE: Single frontal view of the chest is obtained. FINDINGS: There is no focal air space opacity, pleural effusion, or pneumothorax seen. The cardiac silhouette size is within normal limits. The osseous structures are intact. IMPRESSION: No acute process.
[2023-07-27] MEDS: CALCIUM CARBONATE 500 MG CHEWABLE PO PRN ×2 (17:08→20:02)
[2023-07-27] MEDS: PANTOPRAZOLE 40 MG/10 ML VIAL IVP SCH (20:02)
--- NOTE | 2023-07-27 22:26 | P.PN ---
Subjective Progress Note Date: 07/27/23 Patient is a 38-year-old male presents to ER due to alcohol withdrawal symptoms. According to the ER note patient had last drank of vodka on Friday and she agreed to [place] on Friday. Patient has been having shaking and worsening symptoms and also visual and auditory hallucinations. Patient did have a history of DTs. Came to ER for further evaluation. Did have nausea andvomiting. No complaints of chest pain or shortness of breath no fever no chills. No recent illnesses. Patient was agitated in the ER and was aggressive and combative. Patient was transferred to MICU for further management. Currently on Precedex drip. Laboratory test showed sodium 124 potassium 2.6 chloride 70 bicarb is 38 anion gap 16 BUN 32 and creatinine 0.97 blood sugar 127, magnesium 2.4 total bilirubin level 1.7 AST 997 ALT 276 and alk phos 77. Urinalysis showed trace ketones and large blood and RBCs 3. Serum alcohol level is less than 10. WBC 8.4 hemoglobin 15.6 and platelets 180. 07/27/2023 Patient is currently lying in the bed. Awake alert and oriented. Precedex drip is off. Patient still anxious. Able to tolerate oral diet. Complains of gastric reflux. No vomiting. No complaints of shortness of breath. No cough or sputum production. No fever no chills. Laboratory test showed sodium 130 potassium 3.2 chloride 92 bicarb is 34, BUN 18 and creatinine 0.89 and liver enzymes are trending down slowly. Patient is being continued alcohol withdrawal protocol and IV hydration and Precedex drip is off. Currently on room air. Current medications reviewed. Objective - Vital Signs Vital signs: Vital Signs Temp 98.2 F 07/27/23 08:00 Pulse 75 07/27/23 10:00 Resp 31 H 07/27/23 10:00 BP 134/80 07/27/23 10:00 Pulse Ox 92 L 07/27/23 10:00 FiO2 Intake & Output 07/26/23 07/27/23 07/27/23 18:59 06:59 18:59 Intake Total 1407.965 3153.189 612.475 Output Total 4385 1885 635 Balance -1031.155 184.189 -22.525 Weight 95.5 kg Intake: Intake, IV Titration 2671.808 5002.189 612.475 Amount Dexmedetomidine/0.9% NaCl 153.845 69.189 12.475 (Pmx) 400 mcg In Empty Bag 1 bag @ 0.2 MCG/KG/HR 4.99 mls/hr IV .Q20H3M [facility] Rx#:[id number] Potassium Chloride 10 meq 300 100 In Water For Injection 1 100ml.bag @ 100 mls/hr IVPB Q1HR [facility] Rx#: [id number] Potassium Chloride 10 meq 100 900 In Water For Injection 1 100ml.bag @ 100 mls/hr IVPB Q1HR [facility] Rx#: [id number] Potassium Chloride 10 meq 0 In Water For Injection 1 100ml.bag @ 100 mls/hr IVPB Q1HR [facility] Rx#: [id number] Sodium Chloride 0.9% 1, 700 1100 400 000 ml @ 100 mls/hr IV . Q10H [facility] Rx#:[id number] Thiamine 100 mg In Sodium 100 Chloride 0.9% 50 ml @ 100 mls/hr IVPB DAILY [facility] Rx#:[id number] Output: Urine 2285 1885 635 Other: Voiding Method Indwelling Catheter Indwelling Catheter Indwelling Catheter - Exam PHYSICAL EXAMINATION: Patient is lying in the bed comfortably, no acute distress, awake alert and oriented.. HEENT: Normocephalic. Neck is supple. Pupils reactive. Nostrils clear. Oral cavity is moist. Neck reveals no JVD, carotid bruits, or thyromegaly. CHEST EXAMINATION: Trachea is central. Symmetrical expansion. Lung conway clear to auscultation and percussion. CARDIAC: Normal S1, S2 with no gallops. No murmurs ABDOMEN: Soft. Bowel sounds present. Nontender. No organomegaly. No abdominal bruits. Extremities: reveal no edema. No clubbing or cyanosis Neurologically awake, alert, oriented x3 with well-coordinated movements. No focal deficits noted Skin: No rash or skin lesions. Psychiatric: Coperative. Nonsuicidal, anxious Musculoskeletal: No joint swelling or deformity. Normal range of motion. - Labs CBC & Chem 7: 07/26/23 15:47 07/27/23 20:14 Labs: Abnormal Lab Results - Last 24 Hours (Table) 07/26/23 07/26/23 07/26/23 Range/Units 11:41 15:47 15:47 RBC 4.07 L (4.30-5.90) m/uL Hct 38.6 L (39.0-53.0) % Plt Count 142 L (150-450) k/uL Lymphocytes # 0.8 L (1.0-4.8) k/uL Sodium 129 L (137-145) mmol/L Potassium 2.8 L (3.5-5.1) mmol/L Chloride 84 L (98-107) mmol/L Carbon Dioxide 37 H (22-30) mmol/L BUN 25 H (9-20) mg/dL Glucose 105 H (74-99) mg/dL POC Glucose (mg/dL) 116 H (70-110) mg/dL Magnesium 2.4 H (1.6-2.3) mg/dL Total Bilirubin 1.5 H (0.2-1.3) mg/dL AST 839 H (17-59) U/L ALT 239 H (4-49) U/L Total Protein (6.3-8.2) g/dL Albumin (3.5-5.0) g/dL 07/27/23 07/27/23 Range/Units 00:12 06:14 RBC (4.30-5.90) m/uL Hct (39.0-53.0) % Plt Count (150-450) k/uL Lymphocytes # (1.0-4.8) k/uL Sodium 130 L 130 L (137-145) mmol/L Potassium 3.0 L 3.2 L (3.5-5.1) mmol/L Chloride 88 L 92 L (98-107) mmol/L Carbon Dioxide 36 H 34 H (22-30) mmol/L BUN (9-20) mg/dL Glucose (74-99) mg/dL POC Glucose (mg/dL) (70-110) mg/dL Magnesium (1.6-2.3) mg/dL Total Bilirubin 1.4 H (0.2-1.3) mg/dL AST 603 H (17-59) U/L ALT 208 H (4-49) U/L Total Protein 6.0 L (6.3-8.2) g/dL Albumin 3.3 L (3.5-5.0) g/dL Assessment and Plan Assessment: Acute alcohol withdrawal symptoms with DTs, improving Severe hypokalemia potassium 2.6 on admission Hypovolemic hyponatremia Alcoholic hepatitis Mild hyperbilirubinemia Dehydration volume depletion Severe alcohol abuse DVT prophylaxis and GI prophylaxis. Plan: Patient will be continued on IV hydration with normal saline. Precedex drip is off. Patient is currently in MICU. Continue with thiamine 137 alcohol withdrawal protocol. Continue GI prophylaxis and DVT prophylaxis. Replace potassium. Monitor closely. Critical care team is on board. Follow-up CBC and CMP. Time with Patient: Greater than 30
[2023-07-28] MEDS ORDERED: POTASSIUM CHLORIDE ER 20 MEQ TAB.ER PO SCH
[2023-07-28 05:36] LABS: Basophils % (A) 0 %; Eosinophils # (A) 0.1 k/uL (0-0.7); Eosinophils % (A) 2 %; HCT 41.3 % (39.0-53.0); HGB 13.9 gm/dL (13.0-17.5); Lymphocytes # (A) 1.4 k/uL (1.0-4.8); Lymphocytes % (A) 18 %; MCH 32.8 pg (25.0-35.0); MCHC 33.7 g/dL (31.0-37.0); MCV 97.1 fL (80.0-100.0); Mean Platelet Volume 7.7; Monocytes % (A) 13 %; Neutrophils # (A) 4.9 k/uL (1.3-7.7); Neutrophils % (A) 64 %; Platelet Count 193 k/uL (150-450); RBC 4.25 m/uL (4.30-5.90); RDW 13.1 % (11.5-15.5); WBC 7.7 k/uL (3.8-10.6)
[2023-07-28] MEDS: SODIUM CHLORIDE 0.9% 1,000 ML IV SCH (05:48)
[2023-07-28 06:06] LABS: ALT 194 U/L (4-49); AST 455 U/L (17-59); African American GFR (CKD) >90 (>60 ml/min/1.73 sqM); Albumin 3.3 g/dL (3.5-5.0); Alkaline Phosphatase 101 U/L (38-126); Anion Gap 7 mmol/L; Blood Urea Nitrogen 13 mg/dL (9-20); Calcium 8.8 mg/dL (8.4-10.2); Carbon Dioxide 28 mmol/L (22-30); Chloride 96 mmol/L (98-107); Glucose 121 mg/dL (74-99); Non-African American GFR(CKD) >90 (>60 ml/min/1.73 sqM); Potassium 3.1 mmol/L (3.5-5.1); Sodium 131 mmol/L (137-145); Total Protein 6.3 g/dL (6.3-8.2)
[2023-07-28] MEDS: CALCIUM CARBONATE 500 MG CHEWABLE PO PRN ×4 (06:43→21:57)
[2023-07-28] MEDS: POTASSIUM CHLORIDE ER 20 MEQ TAB.ER PO SCH ×3 (07:00→09:38)
[2023-07-28] MEDS: THIAMINE 100 MG TAB PO SCH (09:37)
[2023-07-28] MEDS: PANTOPRAZOLE 40 MG/10 ML VIAL IVP SCH ×2 (09:37→21:57)
[2023-07-28] MEDS: HEPARIN SODIUM,PORCINE 5,000 UNIT/ML 1 ML VIAL SQ SCH ×2 (09:37→16:51)
--- NOTE | 2023-07-28 11:52 | P.PN ---
Subjective Progress Note Date: 07/28/23 Principal diagnosis: Delirium tremens secondary to alcohol withdrawal 38-year-old male with history of alcohol dependence presenting with chief complaint of alcohol withdrawal. Patient last drank of complaint of vodka on Friday. Patient was checked into [place] on Friday, states that he continuously had worsening symptoms of feeling shaky and visual and auditory hallucinations. States that he does have a history of delirium tremens. No c hest pain or difficulty breathing. Admits to nausea with no vomiting. The patient came into the emergency department and the electrolytes were significantly abnormal. The patient had a sodium level of 122 with a potassium level of 3, chloride this 69, bicarb is at 40, BUN 32 with a creatinine of 0.9. LFTs were abnormal consistent with alcoholic hepatitis with an AST of 99 7, LDL cholesterol 76, bilirubin of 1.7, alcohol level is less than 10, glucose was 116, hemoglobin is at 15.6 with a white cell count of 8.5. Currently is on room air oxygen. Hemodynamically stable. No reported aspiration. No shortness of breath or chest pain. No focal neurological deficits. He is currently on Pr ecedex at 0.2 mcg/kg/h Reevaluated today on 07/28/2023, patient remains in the ICU, his alcohol with drawal is under control, patient is off Precedex, remains on the CIWA protocol, no agitation and no tremors, no confusion, hemodynamically stable. Labs including CBC, basic metabolic profile are relatively normal except for low potassium of 3.1 and low sodium of 131. Liver enzymes are improving steadily. Hence I believe we could potentially transfer the patient today out of the ICU to a medical surgical floor in the meantime continue the CIWA protocol Objective - Vital Signs Vital signs: Vital Signs Temp 98.2 F 07/28/23 08:00 Pulse 86 07/28/23 10:00 Resp 31 H 07/28/23 10:00 BP 137/101 07/28/23 10:00 Pulse Ox 96 07/28/23 10:00 FiO2 Intake & Output 07/27/23 07/28/23 07/28/23 18:59 06:59 18:59 Intake Total 5762.475 3800 Output Total 6285 4200 Balance -522.525 -400 Intake: Intake, IV Titration 812.475 Amount Dexmedetomidine/0.9% NaCl 12.475 (Pmx) 400 mcg In Empty Bag 1 bag @ 0.2 MCG/KG/HR 4.99 mls/hr IV .Q20H3M [facility] Rx#:[id number] Potassium Chloride 10 meq 100 In Water For Injection 1 100ml.bag @ 100 mls/hr IVPB Q1HR [facility] Rx#: [id number] Potassium Chloride 10 meq 0 In Water For Injection 1 100ml.bag @ 100 mls/hr IVPB Q1HR [facility] Rx#: [id number] Sodium Chloride 0.9% 1, 600 000 ml @ 100 mls/hr IV . Q10H [facility] Rx#:[id number] Thiamine 100 mg In Sodium 100 Chloride 0.9% 50 ml @ 100 mls/hr IVPB DAILY [facility] Rx#:[id number] Oral [id number] Output: Urine 6285 4200 Other: Voiding Method Indwelling Catheter Indwelling Catheter Urinal - Exam Physical Exam: Revealed a 71-year-old white male in no distress Head: Atraumatic, normocephalic. HEENT:[Neck is supple.] [No neck masses.] [No thyromegaly.] [No JVD.] Chest: [Clear throughout, no crackles, no rhonchi, no wheezes.] Cardiac Exam: [Normal S1 and S2, no S3 gallop, no murmur.] Abdomen: [Soft, nontender, no megaly, no rebound, no guarding, normal bowel sounds.] Extremities: [No clubbing, no edema, no cyanosis.] Neurological Exam: No gross focal neurologic deficit alert oriented 3. Psychiatric: Normal mood affect and normal mental status examination. Skin: No rashes - Labs CBC & Chem 7: 07/28/23 05:05 07/28/23 05:05 Labs: Abnormal Lab Results - Last 24 Hours (Table) 07/27/23 07/28/23 07/28/23 Range/Units 14:41 05:05 05:05 RBC 4.25 L (4.30-5.90) m/uL Sodium 131 L (137-145) mmol/L Potassium 3.3 L 3.1 L (3.5-5.1) mmol/L Chloride 96 L (98-107) mmol/L Glucose 121 H (74-99) mg/dL AST 455 H (17-59) U/L ALT 194 H (4-49) U/L Albumin 3.3 L (3.5-5.0) g/dL Assessment and Plan Assessment: Impression: Acute delirium tremens Acute alcohol withdrawal Chronic alcoholism Electrolytes imbalance including hypokalemia and hyponatremia Tobacco dependence syndrome Alcoholic hepatitis, improving Hypovolemic hyponatremia Recommendation: Continue present supportive care measures Continue alcohol withdrawal protocol Transfer patient to a medical surgical floor Continue to address and correct electrolytes accordingly Continue subcu heparin for DVT prophylaxis Continue Protonix We will continue to follow Time with Patient: Less than 30
[2023-07-28] MEDS ORDERED: MAG HYDROX/AL HYDROX/SIMETH 30 ML CUP PO PRN (12:17)
[2023-07-28] MEDS: IPRATROPIUM-ALBUTEROL 3 ML NEB INHALATION SCH ×3 (13:25→21:37)
--- NOTE | 2023-07-28 15:29 | CT ---
EXAMINATION TYPE: CT angio chest DATE OF EXAM: 07/28/2023 COMPARISON: None HISTORY: r/o hernia and PE.elevated d-dimer. SOB and heart burn. CT DLP: combined 1491.2 mGycm CONTRAST: CT chest with contrast and 3D reconstruction with MIP imaging is performed with IV Contrast, patient injected with 100 mL of Isovue 300. Contrast-enhanced CT of the chest was performed through the course of the pulmonary arteries with tuan g and mediastinal window settings submitted. 3D reconstruction with MIP imaging was also performed. PULMONARY ARTERIES: The pulmonary arteries and their major tributaries are patent. I do not see cassy dence for sizable filling defect to suggest pulmonary embolic process. LUNGS: There is no evidence for focal consolidation. Groundglass infiltrate right upper lobe. Mild br onchial wall thickening. No evidence for atelectasis. No pulmonary nodule or mass is detected. No pleural effusion. MEDIASTINUM: Thoracic aorta is of normal caliber. The heart is not enlarged. No evidence for medi astinal mass. No mediastinal lymph nodes greater than 1cm. HILAR STRUCTURES: No evidence for mass. No hilar lymph nodes greater than 1 cm. UPPER ABDOMEN: No significant abnormality is seen. IMPRESSION: 1. No evidence for Pulmonary embolism at this time.
--- NOTE | 2023-07-28 15:32 | CT ---
EXAMINATION TYPE: CT abdomen pelvis w con DATE OF EXAM: 07/28/2023 COMPARISON: None HISTORY: r/o hernia and PE.elevated d-dimer. SOB and heart burn. CT DLP: combined 1491.2 mGycm CONTRAST: CT scan of the abdomen and pelvis is performed without Oral Contrast and with IV Contrast, patient in jected with 100ml mL of Isovue 300. FINDINGS: LUNG BASES-: No visible nodule. No infiltrate. LIVER/GB: No calcified gallstones. No space occupying hepatic lesion. Biliary tree is of normal ca liber. Hepatomegaly with underlying hepatic steatosis. PANCREAS: No inflammation. No distinct mass. SPLEEN: No splenic enlargement. No lesion seen. ADRENALS: No nodule. No thickening. KIDNEYS/BLADDER: No hydronephrosis. No nephrolithiasis. No distinct renal mass. Small focus of air within the urinary bladder lumen correlate for recent instrumentation or catheterization. BOWEL: Normal appendix. Normal bowel caliber. No inflammation. GENITAL ORGANS: No gross abnormality. LYMPH NODES: No greater than 1cm abdominal or pelvic lymph nodes are appreciated. AORTA: No significant abnormality. OSSEOUS STRUCTURES: No significant abnormality is seen. OTHER: Trace free fluid within the pelvis. No hernia is seen. IMPRESSION: 1. Hepatomegaly with underlying hepatic steatosis. 2. Trace free fluid within the pelvis. 3. No hernia.
[2023-07-28] MEDS: cloNIDine HCL 0.1 MG TAB PO SCH (21:57)
--- NOTE | 2023-07-29 00:07 | P.PN ---
Subjective Progress Note Date: 07/28/23 Patient is a 38-year-old male presents to ER due to alcohol withdrawal symptoms. According to the ER note patient had last drank of vodka on Friday and she agreed to [place] on Friday. Patient has been having shaking and worsening symptoms and also visual and auditory hallucinations. Patient did have a history of DTs. Came to ER for further evaluation. Did have nausea andvomiting. No complaints of chest pain or shortness of breath no fever no chills. No recent illnesses. Patient was agitated in the ER and was aggressive and combative. Patient was transferred to MICU for further management. Currently on Precedex drip. Laboratory test showed sodium 124 potassium 2.6 chloride 70 bicarb is 38 anion gap 16 BUN 32 and creatinine 0.97 blood sugar 127, magnesium 2.4 total bilirubin level 1.7 AST 997 ALT 276 and alk phos 77. Urinalysis showed trace ketones and large blood and RBCs 3. Serum alcohol level is less than 10. WBC 8.4 hemoglobin 15.6 and platelets 180. 07/27/2023 Patient is currently lying in the bed. Awake alert and oriented. Precedex drip is off. Patient still anxious. Able to tolerate oral diet. Complains of gastric reflux. No vomiting. No complaints of shortness of breath. No cough or sputum production. No fever no chills. Laboratory test showed sodium 130 potassium 3.2 chloride 92 bicarb is 34, BUN 18 and creatinine 0.89 and liver enzymes are trending down slowly. Patient is being continued alcohol withdrawal protocol and IV hydration and Precedex drip is off. Currently on room air. 07/28/2023 Patient is seen in follow-up today continues to be in the ICU Precedex drip is off. Patient is maintained on CIWA protocol and will add Librium taper. Patient continues to be on 2 L of oxygen via nasal cannula and weaning FiO2 as tolerated. Patient does not wear oxygen outpatient. Will order d-dimer and if positive follow with CTA to rule out PE. Patient reports he does smoke along with marijuana most likely has COPD. Will make breathing treatments scheduled. Covid testing was negative. Encouraged to increase activity as tolerated. Patient is a possible transfer out of the ICU today. Patient will be returning to [place] [facility] once stabilized and cleared by consultations. Patient is currently afebrile today with reported chest pain. Patient is tolerating diet with no reported nausea or vomiting. Patient is having extreme gastroesophageal reflux and will make Protonix IV twice daily. Review of systems: Constitutional: No reports of fatigue, fever, or chills Cardiovascular: No reports of chest pain or palpitations Respiratory: No reports of shortness of breath or cough GI: No reports of nausea, vomiting, or diarrhea, patient reporting severe acid reflux : No reports of dysuria or retention Neurovascular: reports of generalized weakness All medications have been reviewed Active Medications Al Hydroxide/Mg Hydroxide (Mag Hydrox/Al Hydrox/Simeth 30 Ml Cup) 30 ml PO Q4HR PRN PRN Reason: GI Upset Albuterol/Ipratropium (Ipratropium-Albuterol 3 Ml Neb) 3 ml INHALATION RT-QID [facility] Last Admin: 07/28/23 21:37 Dose: 3 ml Calcium Carbonate/Glycine (Calcium Carbonate 500 Mg Chewable) 500 mg PO QID PRN PRN Reason: Heartburn Last Admin: 07/28/23 21:57 Dose: 500 mg Clonidine (Clonidine Hcl 0.1 Mg Tab) 0.1 mg PO BID [facility] Last Admin: 07/28/23 21:57 Dose: 0.1 mg Heparin Sodium (Porcine) (Heparin Sodium,Porcine 5,000 Unit/Ml 1 Ml Vial) 5,000 unit SQ Q8HR [facility] Last Admin: 07/28/23 16:51 Dose: 5,000 unit Lorazepam (Lorazepam 2 Mg/Ml Inj) 1 mg IV Q1HR PRN PRN Reason: CIWA 10 to 15 Lorazepam (Lorazepam 2 Mg/Ml Inj) 1 mg IV Q2HR PRN PRN Reason: CIWA 8 or 9 Miscellaneous Information (Potassium Replacement Protocol 1 Each Misc) 1 each MISCELLANE DAILY PRN; Protocol PRN Reason: Per Protocol Naloxone HCl (Naloxone 0.4 Mg/Ml 1 Ml Vial) 0.2 mg IV Q2M PRN PRN Reason: Opioid Reversal Ondansetron HCl (Ondansetron 4 Mg/2 Ml Vial) 4 mg IVP Q6HR PRN PRN Reason: Nausea And Vomiting Pantoprazole Sodium (Pantoprazole 40 Mg/10 Ml Vial) 40 mg IVP BID [facility] Last Admin: 07/28/23 21:57 Dose: 40 mg Thiamine HCl (Thiamine 100 Mg Tab) 100 mg PO DAILY [facility] Last Admin: 07/28/23 09:37 Dose: 100 mg PHYSICAL EXAMINATION: Patient is sitting up in the bed currently in the ICU, awake alert and oriented.. Well-developed, well-nourished HEENT: Normocephalic. Neck is supple. Pupils reactive. Nostrils clear. Oral cavity is moist. Neck reveals no JVD, carotid bruits, or thyromegaly. CHEST EXAMINATION: Trachea is central. Symmetrical expansion. Lung conway diminished bilaterally with no wheezing or rhonchi noted CARDIAC: Normal S1, S2 with no gallops. No murmurs ABDOMEN: Soft. Bowel sounds present. Nontender. No organomegaly. No abdominal bruits. Extremities: reveal no edema. No clubbing or cyanosis Neurologically awake, alert, oriented x3 with well-coordinated movements. No focal deficits noted Skin: No rash or skin lesions. Psychiatric: Cooperative. Non-suicidal Musculoskeletal: No joint swelling or deformity. Normal range of motion. Assessment: Acute alcohol withdrawal symptoms with DTs, improving Severe hypokalemia potassium 2.6 on admission, improving Acute hypoxic respiratory failure likely secondary to COPD Continued ongoing nicotine dependence Gastroesophageal reflux disease THC use Hypovolemic hyponatremia Alcoholic hepatitis Mild hyperbilirubinemia Dehydration, volume depletion Severe alcohol abuse DVT prophylaxis and GI prophylaxis. Plan: Patient will be continued in the ICU although is a downgrade to [facility] once a bed is available on IV hydration with normal saline. Precedex drip is off. Continued on CIWA protocol. Patient has not had much IV Ativan and will add oral along with Librium taper Follow-up labs and replace electrolytes per protocol Patient is currently continued on 2 L via nasal cannula and working on weaning FiO2 as tolerated. DuoNeb ordered, Covid testing was negative, incentive spirometer ordered and encouraged to use at least 10 times every hour while awake D-dimer was elevated and ordered CT which was negative for PE Continue GI prophylaxis and DVT prophylaxis. Encouraged to increase activity as tolerated Repeat labs ordered for a.m. Patient will be returning to [place] once stabilized for discharge Possible discharge planning in the next 24-48 hours The impression and plan of care has been dictated by Meme Guo, Nurse Practitioner as directed. Dr. Simba MD I have performed a history and examination and MDM of this patient, discussed the same with the dictator, and agree with the dictator's assessment and plan as written ,documented as a scribe. Based on total visit time, I have performed more than 50% of the visit. Objective - Vital Signs Vital signs: Vital Signs Temp 98.6 F 07/28/23 12:11 Pulse 86 07/28/23 10:00 Resp 16 07/28/23 12:11 BP 146/84 07/28/23 12:11 Pulse Ox 94 L 07/28/23 12:11 FiO2 Intake & Output 07/27/23 07/28/23 07/28/23 18:59 06:59 18:59 Intake Total 5762.475 3800 Output Total 6285 4200 Balance -522.525 -400 Intake: Intake, IV Titration 812.475 Amount Dexmedetomidine/0.9% NaCl 12.475 (Pmx) 400 mcg In Empty Bag 1 bag @ 0.2 MCG/KG/HR 4.99 mls/hr IV .Q20H3M [facility] Rx#:[id number] Potassium Chloride 10 meq 100 In Water For Injection 1 100ml.bag @ 100 mls/hr IVPB Q1HR [facility] Rx#: [id number] Potassium Chloride 10 meq 0 In Water For Injection 1 100ml.bag @ 100 mls/hr IVPB Q1HR [facility] Rx#: [id number] Sodium Chloride 0.9% 1, 600 000 ml @ 100 mls/hr IV . Q10H [facility] Rx#:[id number] Thiamine 100 mg In Sodium 100 Chloride 0.9% 50 ml @ 100 mls/hr IVPB DAILY [facility] Rx#:[id number] Oral 4950 3800 Output: Urine 6285 4200 Other: Voiding Method Indwelling Catheter Indwelling Catheter Urinal - Labs CBC & Chem 7: 07/28/23 05:05 07/28/23 12:38 Labs: Abnormal Lab Results - Last 24 Hours (Table) 07/27/23 07/28/23 07/28/23 Range/Units 14:41 05:05 05:05 RBC 4.25 L (4.30-5.90) m/uL D-Dimer (<0.60) mg/L FEU Sodium 131 L (137-145) mmol/L Potassium 3.3 L 3.1 L (3.5-5.1) mmol/L Chloride 96 L (98-107) mmol/L Glucose 121 H (74-99) mg/dL AST 455 H (17-59) U/L ALT 194 H (4-49) U/L Albumin 3.3 L (3.5-5.0) g/dL 07/28/23 Range/Units 12:38 RBC (4.30-5.90) m/uL D-Dimer 2.14 H (<0.60) mg/L FEU Sodium (137-145) mmol/L Potassium (3.5-5.1) mmol/L Chloride (98-107) mmol/L Glucose (74-99) mg/dL AST (17-59) U/L ALT (4-49) U/L Albumin (3.5-5.0) g/dL
[2023-07-29] MEDS: HEPARIN SODIUM,PORCINE 5,000 UNIT/ML 1 ML VIAL SQ SCH ×2 (01:07→08:50)
[2023-07-29 06:14] LABS: ALT 176 U/L (4-49); AST 314 U/L (17-59); African American GFR (CKD) >90 (>60 ml/min/1.73 sqM); Albumin 3.5 g/dL (3.5-5.0); Alkaline Phosphatase 81 U/L (38-126); Anion Gap 8 mmol/L; Blood Urea Nitrogen 12 mg/dL (9-20); Calcium 9.5 mg/dL (8.4-10.2); Carbon Dioxide 24 mmol/L (22-30); Chloride 100 mmol/L (98-107); Glucose 104 mg/dL (74-99); Non-African American GFR(CKD) >90 (>60 ml/min/1.73 sqM); Potassium 3.8 mmol/L (3.5-5.1); Sodium 132 mmol/L (137-145); Total Bilirubin 0.9 mg/dL (0.2-1.3); Total Protein 6.6 g/dL (6.3-8.2)
[2023-07-29] MEDS: IPRATROPIUM-ALBUTEROL 3 ML NEB INHALATION SCH ×2 (08:16→10:54)
[2023-07-29 08:19] VITALS: PULSE 75
[2023-07-29] MEDS: PANTOPRAZOLE 40 MG/10 ML VIAL IVP SCH (08:50)
[2023-07-29] MEDS: cloNIDine HCL 0.1 MG TAB PO SCH (08:50)
[2023-07-29] MEDS: THIAMINE 100 MG TAB PO SCH (08:51)
[2023-07-29] MEDS ORDERED: SYMBICORT 160-4.5 MCG INHALER INHALATION SCH (09:00)
[2023-07-29 09:04] VITALS: RESP 18
[2023-07-29 11:25] VITALS: BP 119/80; TEMP 98.6
--- NOTE | 2023-07-29 11:52 | P.PN ---
Subjective Progress Note Date: 07/29/23 38-year-old male with history of alcohol dependence presenting with chief complaint of alcohol withdrawal. Patient last drank of complaint of vodka on Friday. Patient was checked into [facility] on Friday, states that he continuously had worsening symptoms of feeling shaky and visual and auditory h allucinations. States that he does have a history of delirium tremens. No chest pain or difficulty breathing. Admits to nausea with no vomiting. The patient came into the emergency department and the electrolytes were significantly abnormal. The patient had a sodium level of 122 with a potassium level of 3, chloride this 69, bicarb is at 40, BUN 32 with a creatinine of 0.9. LFTs were abnormal consistent with alcoholic hepatitis with an AST of 99 7, LDL cholesterol 76, bilirubin of 1.7, alcohol level is less than 10, glucose was 116, hemoglobin is at 15.6 with a white cell count of 8.5. Currently is on room air oxygen. Hemodynamically stable. No reported aspiration. No shortness of breath or chest pain. No focal neurological deficits. He is currently on Precedex at 0.2 mcg/kg/h Reevaluated today on 07/28/2023, patient remains in the ICU, his alcohol withdrawal is under control, patient is off Precedex, remains on the CIWA protocol, no agitation and no tremors, no confusion, hemodynamically stable. Labs including CBC, basic metabolic profile are relatively normal except for low potassium of 3.1 and low sodium of 131. Liver enzymes are improving steadily. Hence I believe we could potentially transfer the patient today out of the ICU to a medical surgical floor in the meantime continue the CIWA protocol The patient is seen today 07/29/2023 in follow-up in the intensive care unit. He remains a regular medical floor overflow. He is awake and alert in no acute distress. He is now maintaining good O2 saturations in the mid 90s on room air. He's afebrile. Hemodynamically stable. CT angiogram ruled out pulmonary embolism. Computed tomography scan of the abdomen and pelvis revealed hepatomegaly with underlying hepatic steatosis. Trace free fluid within the pelvis. No hernia. Sodium 132. Potassium 3.8. Bicarb 24. BUN 12. Creatinine 0.71. AST 314. ALT 176. Chronic virus by PCR not detected. He remains on DuoNeb inhalations. Added Symbicort. Continues in the [facility] protocol. Objective - Vital Signs Vital signs: Vital Signs Temp 98.6 F 07/29/23 11:00 Pulse 75 07/29/23 11:00 Resp 18 07/29/23 11:00 BP 119/80 07/29/23 11:00 Pulse Ox 95 07/29/23 11:00 FiO2 Intake & Output 07/28/23 07/29/23 07/29/23 18:59 06:59 18:59 Intake Total 4500 650 Output Total 3700 700 Balance 800 650 -700 Intake: Intake, IV Titration 2500 Amount Sodium Chloride 0.9% 1, 2500 000 ml @ 100 mls/hr IV . Q10H [facility] Rx#:[id number] Oral 2000 650 Output: Urine 3700 700 Other: Voiding Method Urinal Urinal Urinal # Voids 2 - Exam GENERAL EXAM: Alert, 38-year-old male patient, on room air, comfortable in no apparent distress. HEAD: Normocephalic. EYES: Normal reaction of pupils, equal size. NOSE: Clear with pink turbinates. THROAT: No erythema or exudates. NECK: No masses, no JVD. CHEST: No chest wall deformity. LUNGS: Equal air entry with no crackles, wheeze, rhonchi or dullness. CVS: S1 and S2 normal with no audible murmur, regular rhythm. ABDOMEN: No hepatosplenomegaly, normal bowel sounds, no guarding or rigidity. SPINE: No scoliosis or deformity SKIN: No rashes CENTRAL NERVOUS SYSTEM: No focal deficits, tone is normal in all 4 extremities. EXTREMITIES: There is no peripheral edema. No clubbing, no cyanosis. Peripheral pulses are intact. - Labs CBC & Chem 7: 07/28/23 05:05 07/29/23 05:44 Labs: Abnormal Lab Results - Last 24 Hours (Table) 07/28/23 07/29/23 Range/Units 12:38 05:44 D-Dimer 2.14 H (<0.60) mg/L FEU Sodium 132 L (137-145) mmol/L Glucose 104 H (74-99) mg/dL AST 314 H (17-59) U/L ALT 176 H (4-49) U/L Assessment and Plan Assessment: Acute delirium tremens Acute alcohol withdrawal Chronic alcoholism Transaminitis secondary to above Electrolytes imbalance including hypokalemia and hyponatremia, recovered Tobacco dependence syndrome suspected COPD Alcoholic hepatitis, improving Plan: The patient was seen and evaluated CT angiogram, CT pelvis, labs and medications reviewed Stable and on room air Add Symbicort Educated regarding the importance of both smoking and alcohol cessation Cleared for transfer back to [facility] I have personally seen and examined the patient, performed the documentation and the assessment and plan as written. Number of minutes spent on the visit: 10.
[2023-07-29] MEDS: CALCIUM CARBONATE 500 MG CHEWABLE PO PRN (12:22)
--- NOTE | 2023-07-30 15:10 | P.DS ---
Providers Date of admission: 07/26/23 03:12 Expected date of discharge: 07/29/23 Attending physician: Janee Cottrell Consults: 07/26/23 04:44 Consult Physician Stat Consulting Provider: Zoila Le Consult Reason/Comments: ICU placement Do you want consulting provider notified?: Yes, Notify in am Primary care physician: Stated None Hospital Course: Final diagnosis Acute alcohol withdrawal symptoms with DTs, improved Severe hypokalemia potassium 2.6 on admission, resolved Acute hypoxic respiratory failure secondary to COPD Continued ongoing nicotine dependence Gastroesophageal reflux disease THC use Hypovolemic hyponatremia, improved Alcoholic hepatitis Mild hyperbilirubinemia Dehydration, volume depletion Severe alcohol abuse DVT prophylaxis and GI prophylaxis. Discharge disposition Patient is being discharged in a stable condition with guarded prognosis to [facility] to continue alcohol rehab. Patient will follow-up with his PCP in the outpatient setting upon discharge. Patient is to continue with Librium taper on discharge. Total time taken is greater than 35 minutes. Hospital course This is a 38-year-old male who was recently admitted with acute alcohol withdrawal with delirium tremens being closely monitored. Patient in the ICU as patient required a Precedex drip and was continued on CIWA protocol. Patient was started on Librium and will continue taper on discharge. Patient was here from [facility] and will be returning to complete rehab. Patient had required oxygen which has improved and patient is room air. Patient likely has COPD from continued ongoing nicotine dependence along with THC use. Recommend patient follow-up with primary care provider as well as pulmonary in the outpatient setting. Patient has been encouraged to refrain from any tobacco use and exposure as well as alcohol cessation. Patient has been cleared by consultations for discharge. Please refer to consultation notes for further HPI. Currently no reports of chest pain, shortness of breath, or palpitations. Patient is afebrile. No reports of nausea or vomiting and patient is tolerating diet. Patient will be going to [facility] rehab today. Guarded prognosis Physical exam: Gen: This is a 38-year-old male who is awake, alert and oriented 3, well- developed, well-nourished HEENT: Head is atraumatic, normocephalic. Pupils equal, round. Sclerae is anicteric. NECK: Supple. No JVD. No lymphadenopathy. No thyromegaly. LUNGS: Clear to auscultation. No wheezes or rhonchi. No intercostal retractions. HEART: Regular rate and rhythm. No murmur. ABDOMEN: Soft. Bowel sounds are present. No masses. No tenderness. EXTREMITIES: No pedal edema. No calf tenderness. NEUROLOGICAL: Patient is awake, alert and oriented x3. Cranial nerves 2 through 12 are grossly intact. Please refer to medication reconciliation sheet for a list of medications. The impression and plan of care has been dictated by Meme Guo Nurse Prac titioner as directed. Dr. Simba MD I have performed a history and examination and MDM of this patient, discussed the same with the dictator, and agree with the dictator's assessment and plan as written ,documented as a scribe. Based on total visit time, I have performed more than 50% of the visit. Patient Condition at Discharge: Stable Plan - Discharge Summary Discharge Rx Participant: Yes New Discharge Prescriptions: New Mag Hydrox/Al Hydrox/Simeth [Maalox] 30 ml PO Q4HR PRN ml PRN Reason: Gi Upset Pantoprazole Sodium [Protonix] 40 mg PO DAILY #30 tab Calcium Carbonate [Tums] 500 mg PO QID PRN tab PRN Reason: Heartburn cloNIDine HCL [Catapres] 0.1 mg PO BID #60 tab chlordiazePOXIDE HCl [Librium] 20 mg PO TID #12 cap Budesonide-Formot 160-4.5 Mcg [Symbicort 160-4.5 Mcg Inhaler] 2 puff INHALATION RT-BID #1 each Continue ondansetron HCL [Zofran] 8 mg PO Q6H PRN PRN Reason: Nausea Multivitamins, Thera [Multivitamin (formulary)] 1 tab PO DAILY Ibuprofen [Motrin Ib] 600 mg PO Q6H PRN PRN Reason: Pain Or Fever > 100.5 Hyoscyamine Sulfate [Levsin] 0.125 mg PO QID PRN PRN Reason: CRAMPS Acetaminophen Tab [Tylenol] 650 mg PO Q4H PRN PRN Reason: Pain Or Fever > 100.5 Thiamine [Vitamin B-1] 100 mg PO DAILY Loperamide HCl [Imodium A-D] 4 mg PO QID PRN MDD 16 MG PRN Reason: Diarrhea Chlorpheniramine Maleate [Chlor-Trimeton] 4 mg PO Q4H PRN PRN Reason: WITHDRAWL SYMPTOMS Calcium, Magnesium, Zinc, With Vitamin D3 1 tab PO TID PRN PRN Reason: WITHDRAWL SYMPTOMS Discharge Medication List Acetaminophen Tab [Tylenol] 650 mg PO Q4H PRN 07/26/23 [History] Calcium, Magnesium, Zinc, With Vitamin D3 1 tab PO TID PRN 07/26/23 [History] Chlorpheniramine Maleate [Chlor-Trimeton] 4 mg PO Q4H PRN 07/26/23 [History] Hyoscyamine Sulfate [Levsin] 0.125 mg PO QID PRN 07/26/23 [History] Ibuprofen [Motrin Ib] 600 mg PO Q6H PRN 07/26/23 [History] Loperamide HCl [Imodium A-D] 4 mg PO QID PRN MDD 16 MG 07/26/23 [History] Multivitamins, Thera [Multivitamin (formulary)] 1 tab PO DAILY 07/26/23 [History] Thiamine [Vitamin B-1] 100 mg PO DAILY 07/26/23 [History] ondansetron HCL [Zofran] 8 mg PO Q6H PRN 07/26/23 [History] Budesonide-Formot 160-4.5 Mcg [Symbicort 160-4.5 Mcg Inhaler] 2 puff INHALATION RT-BID #1 each 07/29/23 [Rx] Calcium Carbonate [Tums] 500 mg PO QID PRN tab 07/29/23 [Rx] Mag Hydrox/Al Hydrox/Simeth [Maalox] 30 ml PO Q4HR PRN ml 07/29/23 [Rx] Pantoprazole Sodium [Protonix] 40 mg PO DAILY #30 tab 07/29/23 [Rx] chlordiazePOXIDE HCl [Librium] 20 mg PO TID #12 cap 07/29/23 [Rx] cloNIDine HCL [Catapres] 0.1 mg PO BID #60 tab 07/29/23 [Rx] Patient Instructions/Handouts: Abuse of Alcohol (DC) Activity/Diet/Wound Care/Special Instructions: Patient going to [facility] Activity as tolerated Patient to follow-up with primary care provider on discharge Discharge Disposition: OTHER INSTITUTION NOT DEFINED
== END 2023-07-29 13:45 | DRG 775 ==
LOC: EC 00:53 → 2SICU 03:12 → 4SSUR 07-29 10:54
PROVIDERS: ADMIT Hospitalist; ATTEND Hospitalist
PROC: HZ2ZZZZ Detoxification Services for Substance Abuse Treatment (ICD-10-PCS; principal; 2023-07-26)
DX: F10.231 Alcohol dependence with withdrawal delirium (principal); K70.10 Alcoholic hepatitis without ascites; E87.6 Hypokalemia; Z20.822 Contact with and (suspected) exposure to COVID-19; E87.1 Hypo-osmolality and hyponatremia; E86.1 Hypovolemia; F17.210 Nicotine dependence, cigarettes, uncomplicated; E86.0 Dehydration; K21.9 Gastro-esophageal reflux disease without esophagitis; J44.9 Chronic obstructive pulmonary disease, unspecified; Z71.6 Tobacco abuse counseling; R74.01 Elevation of levels of liver transaminase levels; J96.01 Acute respiratory failure with hypoxia; K76.0 Fatty (change of) liver, not elsewhere classified; Z88.0 Allergy status to penicillin; Z91.030 Bee allergy status
CPT/HCPCS: 36415; 51702; 71045; 71275; 74177; 80048; 80053; 80320; 81001; 83735; 84100; 84132; 85025; 85379; 87635; 93005; 94640; 96361; 96365; 96366; 96368; 96375; 96376; 99285